=== PATIENT | male | born 1955 | race Caucasian/White ===

== ENCOUNTER 2021-01-27 12:05 | Inpatient (IN) | payer MEDICARE, BC ==
[~2021-01-27] VITALS: Ht 185.4 cm; Wt 137.2 kg
--- NOTE | 2021-01-27 12:32 | NUR ---
Pt to room via wheelchair, A/O x4 and speaking in full paragraphs, diaphoresis present with technical healthcare consultant stating EKG in triage showed 216 bpm. Pt c/o is feeling very hot no CP but SOB present.
--- NOTE | 2021-01-27 12:35 | NUR ---
Dr. Palmer at bedside with RN and ED techs. IV start with lab draw being set up while MD is having pt try to blow plunger of 10cc syringe off for valsalva maneuvre. Passive leg raise by MD after pt blowing on syringe completed with noted EKG change from 261 WPW-like tachy dysrhythmia to ST at 135. Narrow complex present for entire time and no ALOC occurred at any point. MD exam now being performed.
--- NOTE | 2021-01-27 12:40 | NUR ---
IV started, labs drawn, NS 1 liter bolus started to site and running well. poultry field service technician completed and superintendent radio communications present now for PCXR.
[2021-01-27 12:50] LABS: BASOPHILS % (AUTO) 0 % (0-1); EOSINOPHILS % (AUTO) 0 % (1-7); LYMPHOCYTES % (AUTO) 12 % (22-44); MEAN CORPUSCULAR HEMOGLOBIN 23.2 pg (27.5-34.5); MEAN CORPUSCULAR HGB CONC 32.2 g/dL (33.2-36.2); MEAN PLATELET VOLUME 7.7 fL (7.4-10.4); MONOCYTES % (AUTO) 11 % (2-9); NEUTROPHILS % (AUTO) 76 % (42-75); PLATELET COUNT 357 x10^3/uL (130-400); RED BLOOD COUNT 6.84 x10^6/uL (4.38-5.82); RED CELL DISTRIBUTION WIDTH 18.9 % (9.4-14.8)
[2021-01-27] MEDS ORDERED: SODIUM CHLORIDE FLUSH 10ML SYR IVF ONE (13:00)
[2021-01-27] MEDS ORDERED: SODIUM CHLORIDE 0.9% 1,000ML IVBOLUS ONE ×2 (13:00→14:30)
[2021-01-27] MEDS ORDERED: PLEASE ENTER ALLERGIES MC SCH (13:00)
--- NOTE | 2021-01-27 13:00 | NUR ---
VS reassessed with stable BP, HR remaining 135, and no CP/SOB/pain elsewhere per pt.
[2021-01-27 13:02] LABS: ALANINE AMINOTRANSFERASE 68 U/L (12-78); ALBUMIN 4.5 g/dL (3.4-5.0); ANION GAP 14 mmol/L (5-15); CALCIUM 9.4 mg/dL (8.5-10.1); CHLORIDE 105 mmol/L (98-107); CREATININE 1.44 mg/dL (0.7-1.3)
[2021-01-27 13:12] LABS: ALKALINE PHOSPHATASE 58 U/L (45-117); BILIRUBIN,TOTAL 1.8 mg/dL (0.2-1.0); TOTAL PROTEIN 7.9 g/dL (6.4-8.2); TROPONIN I < 0.015 ng/mL (0.000-0.045)
--- NOTE | 2021-01-27 13:30 | NUR ---
BP coming down but HR remains ST at 136 on reassessment. Pt denies CP, SOB or any pain elsewhere. IVF almost done. Call light in reach and lactic acid comment only pending lab left. All other lab and radiology results reviewed. Urinal left at bedside for possible needs in future. now present at bedside.
[2021-01-27] MEDS ORDERED: EMPA1TAB7 PO (13:49)
[2021-01-27] MEDS ORDERED: METF500T17 PO (13:49)
[2021-01-27] MEDS ORDERED: ROSU5TAB PO (13:49)
[2021-01-27] MEDS ORDERED: ESCI10TA10 PO (13:49)
[2021-01-27] MEDS ORDERED: TEST200V3 IM (13:49)
[2021-01-27] MEDS ORDERED: RAMI2.5C49 PO (13:49)
[2021-01-27] MEDS ORDERED: PIOG15TA66 PO (13:49)
--- NOTE | 2021-01-27 14:09 | NUR ---
Pt able to ambulate to restroom with steady gait and mild increase in HR to 143 with rapid return to 135 upon return to bed. Awaiting MD reassessment with chart marked for recheck at this time.
--- NOTE | 2021-01-27 14:35 | NUR ---
Second liter of NS started as ordered.
--- NOTE | 2021-01-27 14:53 | NUR ---
MD at bedside for reassessment and discussion of suggested plan of care.
[2021-01-27] MEDS ORDERED: METOPROLOL TARTRATE 50 MG TAB ONE (15:22)
--- NOTE | 2021-01-27 15:24 | NUR ---
Metoprolol given as ordered after VS reassessed.
[2021-01-27] MEDS ORDERED: METOPROLOL TARTRATE 50 MG TAB PO ONE (15:30)
--- NOTE | 2021-01-27 15:34 | NUR ---
Cardiology at bedside for pt exam. Awaiting room assignment for admission.
--- NOTE | 2021-01-27 15:57 | NUR ---
Report called to SHAKEEL Watson and pt readied for transport. Second liter completed and IV site saline locked.
[2021-01-27] MEDS: INSULIN LISPRO 100 UNITS/ML, PEN SQ-INSULIN SCH ×2 (16:00→20:51)
[2021-01-27] MEDS: SODIUM CHLORIDE 0.9% 1,000 ML IV SCH (16:00)
[2021-01-27] MEDS ORDERED: ACETAMINOPHEN 325 MG TABLET PO PRN (16:00)
[2021-01-27 16:37] VITALS: BP 108/79
[2021-01-27] MEDS ORDERED: ENOXAPARIN 30 MG/0.3 ML SQ SCH (17:30)
[2021-01-27 20:42] VITALS: BP 117/84
[2021-01-27] MEDS ORDERED: ATORVASTATIN 20 MG TABLET PO SCH (21:00)
[2021-01-28] MEDS: SODIUM CHLORIDE 0.9% 1,000 ML IV SCH ×2 (00:19→06:32)
[2021-01-28] MEDS ORDERED: OXYcodone IR 5MG TABLET PO PRN (00:30)
[2021-01-28 01:29] VITALS: BP 102/67
[2021-01-28 05:21] LABS: BASOPHILS % (AUTO) 0 % (0-1); EOSINOPHILS % (AUTO) 1 % (1-7); LYMPHOCYTES % (AUTO) 19 % (22-44); MEAN CORPUSCULAR HEMOGLOBIN 23.3 pg (27.5-34.5); MEAN CORPUSCULAR HGB CONC 32.2 g/dL (33.2-36.2); MEAN PLATELET VOLUME 8.2 fL (7.4-10.4); MONOCYTES % (AUTO) 10 % (2-9); NEUTROPHILS % (AUTO) 70 % (42-75); PLATELET COUNT 227 x10^3/uL (130-400); RED BLOOD COUNT 5.75 x10^6/uL (4.38-5.82); RED CELL DISTRIBUTION WIDTH 18.7 % (9.4-14.8)
[2021-01-28 05:32] LABS: CHLORIDE 109 mmol/L (98-107)
[2021-01-28 05:38] LABS: ANION GAP 7 mmol/L (5-15); CALCIUM 8.4 mg/dL (8.5-10.1); CREATININE 0.87 mg/dL (0.7-1.3); FREE T4 (FREE THYROXINE) 0.92 ng/dL (0.76-1.46)
[2021-01-28] MEDS ORDERED: METOPROLOL TARTRATE 50 MG TAB PO SCH (06:00)
[2021-01-28] MEDS: INSULIN LISPRO 100 UNITS/ML, PEN SQ-INSULIN SCH ×3 (07:00→16:00)
[2021-01-28 08:09] VITALS: BP 131/87
[2021-01-28] MEDS ORDERED: ESCITALOPRAM 10MG TABLET PO SCH (09:00)
[2021-01-28] MEDS ORDERED: PIOGLITAZONE 15 MG TABLET PO SCH (09:00)
[2021-01-28] MEDS ORDERED: SODIUM CHLORIDE 0.9% 1,000 ML IV SCH ×2 (10:30→16:00)
[2021-01-28] MEDS ORDERED: APIXABAN 5 MG TABLET PO SCH (11:00)
[2021-01-28] MEDS ORDERED: PROPOFOL 10 MG/ML, 20ML ONE ×2 (14:26)
[2021-01-28 15:03] VITALS: BP 111/80
[2021-01-28] MEDS ORDERED: DIPHENHYDRAMINE 50 MG/ML, 1ML ONE (15:17)
[2021-01-28] MEDS ORDERED: DIPHENHYDRAMINE 50 MG/ML, 1ML IVPush ONE (15:30)
[2021-01-28 18:13] VITALS: BP 118/79
[2021-01-28] MEDS ORDERED: METO25TA35 PO ×2 (18:40)
[2021-01-28] MEDS ORDERED: APIX5TAB PO (18:40)
[2021-01-28] MEDS ORDERED: METO50TA82 PO (18:46)
== END 2021-01-28 19:33 | disposition home or self-care (01) | DRG 308 ==
LOC: ED 14:32 → EDIP 15:23 → 5SO 16:33
PROVIDERS: ADMIT Family Medicine; ATTEND Family Medicine
PROC: 5A2204Z Restoration of Cardiac Rhythm, Single (ICD-10-PCS; principal; 2021-01-28 13:00)
DX: I48.0 Paroxysmal atrial fibrillation (principal); N17.0 Acute kidney failure with tubular necrosis; E87.2 Acidosis; D68.69 Other thrombophilia; D72.828 Other elevated white blood cell count; E11.9 Type 2 diabetes mellitus without complications; E78.5 Hyperlipidemia, unspecified; E86.0 Dehydration; T67.5XXA Heat exhaustion, unspecified, initial encounter; F43.10 Post-traumatic stress disorder, unspecified; I10 Essential (primary) hypertension; Z20.822 Contact with and (suspected) exposure to COVID-19; I48.92 Unspecified atrial flutter; I47.1 Supraventricular tachycardia; X30.XXXA Exposure to excessive natural heat, initial encounter; Y93.89 Activity, other specified; Y92.89 Other specified places as the place of occurrence of the external cause; Y99.8 Other external cause status; Z82.49 Family history of ischemic heart disease and other diseases of the circulatory system; Z83.3 Family history of diabetes mellitus; Z79.84 Long term (current) use of oral hypoglycemic drugs; Z87.442 Personal history of urinary calculi; Z87.891 Personal history of nicotine dependence; Z98.84 Bariatric surgery status
CPT/HCPCS: 36415; 71045; 80048; 80053; 82962; 83605; 83735; 83880; 84439; 84443; 84484; 85025; 87635; 92960; 93005; 93312; 93325; G0378; J1650; J2704; J1200; J1815; J7030